=== PATIENT | male | born 1940 | race Caucasian/White ===

== ENCOUNTER 2020-02-17 10:08 | Emergency (ER) | payer MEDICARE, BC ==
[~2020-02-17] VITALS: Ht 170.2 cm; Wt 68.0 kg
--- NOTE | 2020-02-17 10:08 | NUR ---
Dr. Singer at bedside for MSE
[2020-02-17] MEDS ORDERED: LIDOCAINE HCL 1% 20 ML VIAL TP ONE (10:15)
[2020-02-17] MEDS ORDERED: TDAP DIPH,PERTUSS,TET VAC/PF 0.5 ML DISP.SYRIN IM ONE ×2 (10:15→10:20)
--- NOTE | 2020-02-17 10:25 | NUR ---
Vivien green in [facility] - 02/17/20 at [address] Singer at [facility]
--- NOTE | 2020-02-17 10:25 | NUR ---
Patient taken to CT scan in stable condition
--- NOTE | 2020-02-17 10:42 | NUR ---
Patient back from CT scan
--- NOTE | 2020-02-17 11:30 | NUR ---
Patient discharged to home in stable condition. Written and verbal after care instructions given. Patient verbalizes understanding of instructions. Stressed follow up or return to ER for worsening s/s. Patient ambulating with steady gait. NAD noted
[2020-02-17 11:38] VITALS: BP 131/78
== END 2020-02-17 11:30 | disposition home or self-care (01) ==
LOC: ER 10:08
DX: S01.81XA Laceration without foreign body of other part of head, initial encounter (principal); S01.511A Laceration without foreign body of lip, initial encounter; S00.31XA Abrasion of nose, initial encounter; V18.4XXA Pedal cycle driver injured in noncollision transport accident in traffic accident, initial encounter; Y93.55 Activity, bike riding; Y92.830 Public park as the place of occurrence of the external cause; Y99.8 Other external cause status; S00.83XA Contusion of other part of head, initial encounter; S60.222A Contusion of left hand, initial encounter; I67.9 Cerebrovascular disease, unspecified; J34.2 Deviated nasal septum
CPT/HCPCS: 12011; 70450; 70486; 73130; 90471; 90715; 99285; J3490; A4663

== ENCOUNTER 2020-02-23 11:56 | Emergency (ER) | payer MEDICARE, BC ==
[~2020-02-23] VITALS: Ht 170.2 cm; Wt 68.0 kg
--- NOTE | 2020-02-23 12:20 | NUR ---
Dr. Reid at bedside for MSE
--- NOTE | 2020-02-23 12:39 | NUR ---
Patient discharged to home in stable condition. Written and verbal after care instructions given. Patient verbalizes understanding of instructions. Stressed follow up or return to ER for worsening s/s. Patient ambulating with steady gait
[2020-02-23 12:41] VITALS: BP 142/81
== END 2020-02-23 12:39 | disposition home or self-care (01) ==
LOC: ER 11:56
DX: S01.511D Laceration without foreign body of lip, subsequent encounter (principal); S01.81XD Laceration without foreign body of other part of head, subsequent encounter; W19.XXXD Unspecified fall, subsequent encounter; C90.00 Multiple myeloma not having achieved remission
CPT/HCPCS: A4663

== ENCOUNTER 2020-02-27 08:55 | Emergency (ER) | payer MEDICARE, BC ==
[~2020-02-27] VITALS: Ht 170.2 cm; Wt 68.0 kg
--- NOTE | 2020-02-27 09:07 | NUR ---
Patient discharged to home in stable condition. Written and verbal after care instructions given. Patient verbalizes understanding of instructions. Stressed follow up or return to ER for worsening s/s.
== END 2020-02-27 09:07 | disposition home or self-care (01) ==
LOC: ER 08:55
DX: S01.511D Laceration without foreign body of lip, subsequent encounter (principal); X58.XXXD Exposure to other specified factors, subsequent encounter; C90.00 Multiple myeloma not having achieved remission
CPT/HCPCS: A4663

== ENCOUNTER 2021-08-03 12:13 | Emergency (ER) | payer MEDICARE, BC ==
[~2021-08-03] VITALS: Ht 170.2 cm; Wt 70.8 kg
[2021-08-03] MEDS ORDERED: DARZALEX (12:30)
--- NOTE | 2021-08-03 13:48 | NUR ---
Gave pt CD and d/c instructions, pt verbalized understanding.
== END 2021-08-03 13:50 | disposition home or self-care (01) ==
LOC: ER 12:13
DX: S32.512A Fracture of superior rim of left pubis, initial encounter for closed fracture (principal); S32.592A Other specified fracture of left pubis, initial encounter for closed fracture; V19.88XA Pedal cyclist (driver) (passenger) injured in other specified transport accidents, initial encounter; Y93.55 Activity, bike riding; Y92.89 Other specified places as the place of occurrence of the external cause; Y99.8 Other external cause status; C90.00 Multiple myeloma not having achieved remission
CPT/HCPCS: 72192; A4663